=== PATIENT | female | born 1980 | race Caucasian/White ===

== ENCOUNTER 2017-04-01 16:40 | Emergency (ER) | payer MEDICAID ==
[~2017-04-01] VITALS: Ht 170.2 cm; Wt 68.0 kg
[2017-04-01 16:40] VITALS: BP_SYST 125
--- NOTE | 2017-04-01 16:40 | NUR ---
BROUGHT BACK TO BED #4 AND TRIAGED. REPORT GIVEN TO ALFONSO.
--- NOTE | 2017-04-01 16:52 | NUR ---
DR CROWELL AT BEDSIDE, DR CROWELL RECEIVED A DIFFERENT HISTORY THAN PT GAVE TO ME. PT STATES TO ME THAT SHE WAS IN RESTROOM AND WOKE UP OVER 3 MINUTES LATER ON THE FLOOR AFTER A SYNCOPAL EPISODE. DR WAS TOLD THAT SHE LEANED OVER THE SINK AND NEVER LAID ON THE FLOOR, SYNCOPAL EPISODE BUT WOKE UP LEANING ON SINK.
--- NOTE | 2017-04-01 17:00 | NUR ---
Pt brought by self , A&Ox4, pt states she was at work and felt sick , she went to the bathroom and had a syncope episode, pt states she woke up with her head in the sink, VSS , cap refill <3, respirations even and unlabored.
--- NOTE | 2017-04-01 17:05 | NUR ---
[facility] Report filed and faxed to [phone].
[2017-04-01 17:15] LABS: BASOPHILS % (AUTO) 0.6 % (0.0-2.0); EOSINOPHILS # (AUTO) 0.1 K/uL (0.0-0.4); EOSINOPHILS % (AUTO) 1.6 % (0.0-4.0); HEMATOCRIT 38.6 % (36-48); HEMOGLOBIN 13.1 g/dL (12.0-16.0); LYMPHOCYTES # (AUTO) 2.4 K/uL (1.0-5.5); LYMPHOCYTES % (AUTO) 41.1 % (20.5-51.5); MEAN CORPUSCULAR HEMOGLOBIN 30 pg (27-31); MEAN CORPUSCULAR HGB CONC 34 % (32-36); MEAN CORPUSCULAR VOLUME 88 fL (79.0-98.0); MONOCYTES # (AUTO) 0.3 K/uL (0.0-1.0); MONOCYTES % (AUTO) 5.9 % (1.7-9.3); NEUTROPHILS # (AUTO) 3.1 K/uL (1.8-7.7); NEUTROPHILS % (AUTO) 50.8 % (40.0-70.0); PLATELET COUNT (AUTO) 349 K/uL (130-430); RED CELL DISTRIBUTION WIDTH 12.6 % (9.0-15.0); WHITE BLOOD COUNT (AUTO) 5.9 K/uL (4.8-10.8)
[2017-04-01 17:41] LABS: ALBUMIN 4.4 g/dL (3.4-4.8); CALCIUM 9.3 mg/dL (8.4-11.0); CREATININE 0.64 mg/dL (0.55-1.30); POTASSIUM 3.6 mmol/L (3.5-5.1); TOTAL BILIRUBIN 0.3 mg/dL (0.0-1.0)
[2017-04-01 18:26] VITALS: BP_SYST 125
--- NOTE | 2017-04-01 19:26 | NUR ---
Patient given written and verbal discharge instructions and verbalizes understanding. ER MD discussed with patient the results and treatment provided. Patient in stable condition. ID arm band removed. No prescriptions given. Patient educated on pain management and to follow up with PMD. Pain Scale 0/10 . Opportunity for questions provided and answered.
== END 2017-04-01 18:26 | disposition home or self-care (01) ==
LOC: SED 16:40
DX: R55 Syncope and collapse (principal); R11.0 Nausea; R42 Dizziness and giddiness; R03.0 Elevated blood-pressure reading, without diagnosis of hypertension
CPT/HCPCS: 36415; 80053; 81025; 84702-TC; 85025; 93005; 99285

== ENCOUNTER 2017-06-26 23:30 | Emergency (ER) | payer MEDICAID ==
[~2017-06-26] VITALS: Ht 170.2 cm; Wt 70.3 kg
[2017-06-26 23:32] VITALS: BP_SYST 125
[2017-06-26] MEDS ORDERED: methylPREDNISolone SOD SUCC/PF 62.5 MG/ML VIAL IVP ONE (23:45)
[2017-06-26] MEDS ORDERED: DIPHENHYDRAMINE INJ 50 MG/ML VIAL IVP ONE (23:45)
[2017-06-26] MEDS ORDERED: EPINEPHrine 1 MG/ML AMP SUBCUT ONE (23:45)
[2017-06-27 00:41] VITALS: BP_SYST 127
== END 2017-06-27 00:41 | disposition home or self-care (01) ==
LOC: SED 23:30
DX: L50.9 Urticaria, unspecified (principal); T78.40XA Allergy, unspecified, initial encounter; X58.XXXA Exposure to other specified factors, initial encounter
CPT/HCPCS: 96374; 96375; 99284; J1200; J2930

== ENCOUNTER 2021-01-29 22:26 | Emergency (ER) | payer MEDICAID ==
[~2021-01-29] VITALS: Ht 170.2 cm; Wt 69.9 kg
[2021-01-29 22:30] VITALS: BP_SYST 123
[2021-01-30 00:06] LABS: BILIRUBIN,URINE NEGATIVE (NEGATIVE); BLOOD, URINE NEGATIVE (NEGATIVE); CLARITY/URINE CLEAR (CLEAR); COLOR,URINE YELLOW (YELLOW); GLUCOSE,URINE NEGATIVE (NEGATIVE); KETONES,URINE NEGATIVE (NEGATIVE); LEUKOCYTE ESTERASE ,URINE NEGATIVE (NEGATIVE); NITRITE, URINE NEGATIVE (NEGATIVE); PROTEIN URINE NEGATIVE (NEGATIVE); UROBILINOGEN,URINE 0.2 (0.2-1.0)
[2021-01-30 01:01] LABS: CALCIUM 8.8 mg/dL (8.4-11.0); CREATININE 0.64 mg/dL (0.55-1.30); POTASSIUM 3.9 mmol/L (3.5-5.1)
[2021-01-30 01:03] LABS: BASOPHILS % (AUTO) 0.5 % (0.0-2.0); EOSINOPHILS # (AUTO) 0.1 K/uL (0.0-0.4); EOSINOPHILS % (AUTO) 1.8 % (0.0-4.0); HEMATOCRIT 33.8 % (36-48); HEMOGLOBIN 11.6 g/dL (12.0-16.0); LYMPHOCYTES # (AUTO) 2.5 K/uL (1.0-5.5); LYMPHOCYTES % (AUTO) 38.8 % (20.5-51.5); MEAN CORPUSCULAR HEMOGLOBIN 30 pg (27-31); MEAN CORPUSCULAR HGB CONC 34 % (32-36); MEAN CORPUSCULAR VOLUME 86 fL (79.0-98.0); MONOCYTES # (AUTO) 0.6 K/uL (0.0-1.0); MONOCYTES % (AUTO) 8.6 % (1.7-9.3); NEUTROPHILS # (AUTO) 3.3 K/uL (1.8-7.7); NEUTROPHILS % (AUTO) 50.3 % (40.0-70.0); PLATELET COUNT (AUTO) 270 K/uL (130-430); RED BLOOD CELL COUNT(AUTO) 3.92 MIL/uL (4.2-6.2); RED CELL DISTRIBUTION WIDTH 14.4 % (9.0-15.0); WHITE BLOOD COUNT (AUTO) 6.5 K/uL (4.8-10.8)
[2021-01-30 01:07] LABS: ALBUMIN 3.6 g/dL (3.4-4.8); TOTAL BILIRUBIN 0.2 mg/dL (0.0-1.0)
[2021-01-30] MEDS ORDERED: IBUP-1969 PO (02:08)
[2021-01-30 02:14] VITALS: BP_SYST 123
== END 2021-01-30 02:14 | disposition home or self-care (01) ==
LOC: SED 22:26
DX: R10.9 Unspecified abdominal pain (principal); Z79.899 Other long term (current) drug therapy
CPT/HCPCS: 36415; 76770; 80053; 81003; 81025; 85025; 99284

== ENCOUNTER 2021-12-22 16:08 | Emergency (ER) | payer MEDICAID ==
[~2021-12-22] VITALS: Ht 170.2 cm; Wt 72.6 kg
[~2021-12-22 16:08] MED LIST: IBUP-1969 PO
[2021-12-22 16:38] VITALS: BP_SYST 125
--- NOTE | 2021-12-22 17:20 | NUR ---
ER at bedside examining patient.
--- NOTE | 2021-12-22 17:20 | NUR ---
Patient to ER bed triage to gown for evaluation. Side rails up.
--- NOTE | 2021-12-22 17:30 | NUR ---
Note izaiah in EDM - 12/22/21 at 1929 by VERO Pt presents to ED c/o RUQ abd pain with h/o gallstones.Pt reports pain same as gallbladder pain.
--- NOTE | 2021-12-22 17:30 | NUR ---
Pt reports rash on R leg and buttocks x 2 wks worsening. Pt has no acute resp distress noted.
[2021-12-22] MEDS ORDERED: CLIN-22 PO (17:56)
[2021-12-22] MEDS ORDERED: CLOT15CR5 TP (17:56)
[2021-12-22 17:57] LABS: ANION GAP 8 (5-15); CALCIUM 8.7 mg/dL (8.4-11.0); CHLORIDE 102 mmol/L (98-107); CREATININE 0.88 mg/dL (0.55-1.30); GLUCOSE 96 mg/dL (70-99); POTASSIUM 3.9 mmol/L (3.5-5.1); UREA NITROGEN, BLOOD 11 mg/dL (8-21)
[2021-12-22 18:01] LABS: GFR AFRICAN AMERICAN 92 mL/min (>90)
[2021-12-22 18:03] LABS: ALANINE AMINOTRANSFERASE 18 U/L (12-78); ALBUMIN 3.5 g/dL (3.4-4.8); ASPARTATE AMINOTRANSFERASE 22 U/L (10-37); TOTAL BILIRUBIN 0.3 mg/dL (0.0-1.0)
[2021-12-22 18:04] LABS: BASOPHILS % (AUTO) 0.7 % (0.0-2.0); EOSINOPHILS # (AUTO) 0.2 K/uL (0.0-0.4); EOSINOPHILS % (AUTO) 4.4 % (0.0-4.0); HEMATOCRIT 36.9 % (36-48); LYMPHOCYTES # (AUTO) 1.7 K/uL (1.0-5.5); LYMPHOCYTES % (AUTO) 32.1 % (20.5-51.5); MEAN CORPUSCULAR VOLUME 87 fL (79.0-98.0); MONOCYTES # (AUTO) 0.4 K/uL (0.0-1.0); MONOCYTES % (AUTO) 7.3 % (1.7-9.3); NEUTROPHILS # (AUTO) 2.9 K/uL (1.8-7.7); NEUTROPHILS % (AUTO) 55.5 % (40.0-70.0); PLATELET COUNT (AUTO) 309 K/uL (130-430); RED BLOOD CELL COUNT(AUTO) 4.23 MIL/uL (4.2-6.2); RED CELL DISTRIBUTION WIDTH 14.9 % (9.0-15.0); WHITE BLOOD COUNT (AUTO) 5.3 K/uL (4.8-10.8)
[2021-12-22 18:09] LABS: C-REACTIVE PROTEIN QUANT < 0.2 mg/dL (0-0.5)
[2021-12-22 18:20] VITALS: BP_SYST 125
--- NOTE | 2021-12-22 18:24 | NUR ---
Patient given written and verbal discharge instructions and verbalizes understanding. ER MD discussed with patient the results and treatment provided. Patient in stable condition. ID arm band removed. Rx of Lotrimin and Clindamycin given. Patient educated on pain management and to follow up with PMD. Opportunity for questions provided and answered. Medication side effect fact sheet provided.
== END 2021-12-22 18:24 | disposition home or self-care (01) ==
LOC: SED 16:08
DX: B35.4 Tinea corporis (principal); L03.115 Cellulitis of right lower limb; Z79.899 Other long term (current) drug therapy
CPT/HCPCS: 36415; 80053; 83605; 85025; 86140; 99283

== ENCOUNTER 2022-12-25 04:14 | Emergency (ER) | payer MEDICAID ==
[~2022-12-25] VITALS: Ht 170.2 cm; Wt 74.8 kg
[~2022-12-25 04:14] MED LIST changes: +CLIN-22 PO; +CLOT15CR5 TP
[2022-12-25 04:32] VITALS: BP_SYST 139; PULSE 64; RESP 17; TEMP 98.9; O2SAT 100
[2022-12-25 05:13] LABS: BILIRUBIN,URINE NEGATIVE (NEGATIVE); BLOOD, URINE NEGATIVE (NEGATIVE); CLARITY/URINE CLEAR (CLEAR); COLOR,URINE YELLOW (YELLOW); GLUCOSE,URINE NEGATIVE (NEGATIVE); KETONES,URINE NEGATIVE (NEGATIVE); LEUKOCYTE ESTERASE ,URINE NEGATIVE (NEGATIVE); NITRITE, URINE NEGATIVE (NEGATIVE); PROTEIN URINE NEGATIVE (NEGATIVE); UROBILINOGEN,URINE 0.2 (0.2-1.0)
[2022-12-25] MEDS ORDERED: MOM PO (05:23)
[2022-12-25 05:29] VITALS: BP_SYST 135; PULSE 66; RESP 17; TEMP 98.7; O2SAT 98
== END 2022-12-25 05:27 | disposition home or self-care (01) ==
LOC: SED 04:14
DX: K60.2 Anal fissure, unspecified (principal); K62.5 Hemorrhage of anus and rectum; K59.00 Constipation, unspecified; Z79.899 Other long term (current) drug therapy
CPT/HCPCS: 81003; 99283

== ENCOUNTER 2023-04-30 17:33 | Emergency (ER) | payer MEDICAID ==
[~2023-04-30] VITALS: Ht 170.2 cm; Wt 74.8 kg
[~2023-04-30 17:33] MED LIST changes: +MOM PO
[2023-04-30 17:35] VITALS: BP_SYST 112; PULSE 62; RESP 18; TEMP 98.2; O2SAT 100
[2023-04-30] MEDS ORDERED: ACET-2634 PO (20:15)
[2023-04-30 21:30] VITALS: BP_SYST 119; PULSE 61; RESP 16; TEMP 96.9; O2SAT 100
== END 2023-04-30 21:30 | disposition home or self-care (01) ==
LOC: SED 17:33
DX: N60.01 Solitary cyst of right breast (principal); Z98.82 Breast implant status; Z79.899 Other long term (current) drug therapy
CPT/HCPCS: 71046; 76642; 99284